=== PATIENT | female | born 1975 | race Caucasian/White ===

== ENCOUNTER → 2016-07-05 | Outpatient (CLI) | payer OTHER ==
[~2016-07-05] MED LIST: /ONDA4TA OR; ACAR25TA2 PO; AMIT24CA5 PO; AMIT25TA2 OR; ARTISOL10 OU; BENA25CA4 PO; CHRO1000 PO; CINN500C9 PO; CIPR500T89 PO; CORDRAN; CYCL10TA3 PO; DIFL150T PO; EPIN0.052 OU; FISH1000 PO; FOLI1TAB OR; FURO40TA2 OR; GLYB5TAB5 PO; HYDR25TAB PO; HYPROMELLOSE OU; JANUMET PO; K-TA10TA2 PO; LACT10SO8 PO; LANTUS SOLOSTAR SC; LYRI200C PO; MS C15TA2 PO; NADO20TA2 PO; NEUR600T OR; NEXI20CA OR; NYST100024 TOP; ONDA4TAB6 PO; OXCA15HATB OR; OXYC-208 PO; OXYC10TA12 OR; POLYBTL PO; PRANDIN PO; PRENTAB8 PO; SPIR100T PO; TOPI25CA PO; VITA50TA OR; VITA50TA12 OR; XIFAXAN PO; ZINC50TA PO; [UNRECOGNIZED DRUG - CODE] OR; [UNRECOGNIZED DRUG - MIXTURE]; [UNRECOGNIZED DRUG - OTHER] PO; [UNRECOGNIZED DRUG - OTHER] TF
[2016-07-05 15:53] LABS: INR 1.1
[2016-07-05 15:54] LABS: ALBUMIN 4.5 GM/DL (3.2-5.2); ALBUMIN/GLOBULIN RATIO 1.07 (1.00-1.93); ALKALINE PHOSPHATASE 99 U/L (45-117); ALT/SGPT 25 U/L (12-78); ANION GAP 10 MEQ/L (8-16); AST/SGOT 20 U/L (15-37); BILIRUBIN,TOTAL 1.2 MG/DL (0.2-1.0); BLOOD UREA NITROGEN 19 MG/DL (7-18); CALCIUM LEVEL 9.6 MG/DL (8.5-10.1); CARBON DIOXIDE LEVEL 33 MEQ/L (21-32); CHLORIDE LEVEL 94 MEQ/L (98-107); CREATININE FOR GFR 1.02 MG/DL (0.55-1.02); GLOMERULAR FILTRATION RATE > 60.0 (>60); GLUCOSE, FASTING 153 MG/DL (70-105); POTASSIUM SERUM 3.2 MEQ/L (3.5-5.1); SODIUM LEVEL 137 MEQ/L (136-145); TOTAL PROTEIN 8.7 GM/DL (6.4-8.2)
[2016-07-05 16:01] LABS: MEAN CORPUSCULAR HEMOGLOBIN 30.3 pg (27.0-33.0); MEAN CORPUSCULAR VOLUME 88.9 fl (80.0-96.0); PLATELET COUNT, AUTOMATED 141 k/mm3 (150-450); RED CELL DISTRIBUTION WIDTH 14.8 % (11.5-14.5); WHITE BLOOD COUNT 18.7 K/mm3 (4.0-10.0)
[2016-07-05 16:15] LABS: EOSINOPHILS 1 % (0-5)
[2016-07-05 16:16] LABS: PLATELET CLUMPS SMALL AMT
--- NOTE | 2016-07-06 06:35 | REP ---
Clinical: Spondylosis. Technique: AP, lateral, flexion/extension, bilateral oblique, and open-mouth views. Findings: Straightening of normal lordosis is appreciated along with mild endplate irregularity and disc space narrowing at the C4-5 and C5-6 levels is suggested. No acute fracture / compression injury or subluxation. Open mouth view demonstrates normal C1-C2 articulation and odontoid process. Oblique views demonstrate patent neural foramen. Impression: Straightening of normal lordosis and mild degenerative disc disease at the C4-5 and C5-6 levels suggested. Signed by Waldo Cruz MD 07/06/2016 06:28 A
--- NOTE | 2016-07-06 06:43 | REP ---
Clinical: Spondylosis . Technique: AP, lateral, flexion/extension, bilateral oblique, and coned-down views. Findings: Alignment and lordosis is maintained. The vertebral bodies including transverse process and spinous processes are intact and normal. There is no evidence for acute fracture / compression injury or subluxation. No evidence for spondylolysis or spondylolisthesis. No significant degenerative change is noted. Impression: Normal lumbosacral spine radiograph series. Signed by Waldo Cruz MD 07/06/2016 06:34 A
== END ==
LOC: M LAB 14:31
PROVIDERS: ATTEND Neurological Surgery
DX: Z01.818 Encounter for other preprocedural examination (principal); M47.892 Other spondylosis, cervical region; M47.896 Other spondylosis, lumbar region

== ENCOUNTER → 2016-07-13 | Outpatient (CLI) | payer OTHER ==
--- NOTE | 2016-07-13 18:52 | ECGEPIP ---
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
--- NOTE | 2016-07-14 01:17 | REP ---
Clinical: Preoperative assessment with history of hemoptysis and cough . Comparison: 07/15/2015 . Technique: PA and lateral. Findings: The mediastinum and cardiac silhouette are normal. Airway is patent and midline. The lung pritchett are clear and without acute consolidation, effusion, or pneumothorax. The skeletal structures are intact and normal. Impression: 1. No acute cardiopulmonary process. Signed by Waldo Cruz MD 07/14/2016 01:09 A
== END ==
LOC: M EKG 12:31
PROVIDERS: ATTEND Neurological Surgery
DX: Z01.818 Encounter for other preprocedural examination (principal)

== ENCOUNTER → 2016-07-27 | Day surgery (SDC) | payer OTHER ==
[~2016-07-27] VITALS: Ht 157.5 cm; Wt 72.6 kg
[~2016-07-27] MED LIST changes: +AMIT25TA PO; +CEFUROXIME SODIUM 1.5 GM in D5W MINI-BAG PLUS 50 ML IV ONE; +CYCL10TA PO; +GLYCOPYRROLATE INJ 0.2 MG/ML 2 ML VIAL As Ordered ONE; +HYDR12.55 PO; +INSUDET SC; +JARD1TAB PO; +KETOROLAC 60 MG/2 ML VIAL (J1885) As Ordered ONE; +LASI40TA PO; +LIDOCAINE 1% SDV INJ 30 ML VIAL As Ordered ONE; +LIDOCAINE 2% INJ 100 MG/5 ML SDV (FOR ANES.) As Ordered ONE; +LR 1,000 ML IV SCH; +METF1000 PO; +METF500T PO; +MIDAZOLAM INJ 2 MG/2 ML VIAL (J2250) As Ordered ONE; +NADO20TA PO; +NADOLOL 20MG TABLET PO ONE; +NEOSTIGMINE 1MG/ML 5 ML SYRINGE (J2710) As Ordered ONE; +NEXI20CA PO; +NORCO, ANEXSIA 5/325MG TABLET (HYDROcodone/ACETAMINOPHEN) PO PRN; +ONDANSETRON 4MG/2ML VIAL (J2405) As Ordered ONE; +ONDANSETRON 4MG/2ML VIAL (J2405) IV PRN; +PRAV10TA PO; +PRENTAB72 PO; +PROPOFOL 200 MG/20 ML VIAL As Ordered ONE; +ROCURONIUM BROMIDE 50 MG/5 ML VIAL As Ordered ONE; +TRUL0.5I SC; +VITA500T3 PO; +dexameTHASONE 4 MG/ML 1ML VIAL (J1100) As Ordered ONE; +ePHEDrine SULFATE 25 MG/5 ML(5MG/ML) SYRINGE As Ordered ONE; +fentaNYL 100 MCG/2 ML INJECTION (J3010) As Ordered ONE; +fentaNYL 100 MCG/2 ML INJECTION (J3010) IV PRN; +methylPREDNISolone SUSP 40 MG/ML (DEPO-medrol) VIAL (J1030) As Ordered ONE; +methylPREDNISolone SUSP 40 MG/ML (DEPO-medrol) VIAL (J1030) XX ONE
[2016-07-27 06:54] LABS: CONTROL LINE UCG INT CTR LINE PRESENT
[2016-07-27 07:30] VITALS: BP 130/80
[2016-07-27 11:31] VITALS: BP 102/55
--- NOTE | 2016-07-27 14:05 | RO ---
DATE OF PROCEDURE: 07/27/2016 PREOPERATIVE DIAGNOSES: Left carpal tunnel syndrome, comorbidities including diabetes. POSTOPERATIVE DIAGNOSES: Left carpal tunnel syndrome, comorbidities including diabetes. PROCEDURE: Release of left carpal tunnel and lysis of perineural scarring ( of median nerve). SURGEON: Ana Ball MD CIVIL PREPAREDNESS COORDINATOR: ANESTHESIA: General with tourniquet. FINDINGS: Please see my office notes for detailed preoperative evaluation and discussions. The patient was seen in the preoperative area with her nurses. The patient has a clinical and electrodiagnostic evidence of left carpal tunnel syndrome. The patient, however, understands that not all of her symptoms could be readily explained on her clinical and electrodiagnostic findings. She understands that no guarantees of any kind could be given and the risk of surgery. She understands all options and sequelae and complications of the proposed surgery. She understands the risk of surgery includes but not limited to , infection, bleeding, persistence or worsening of symptoms, and/or any deficits, failure of surgery, need for multiple surgeries, loss of any or all vital bodily functions, and/or any catastrophic sequelae. The patient claimed again she is not ready to live with her symptom and is willing to take any chance for any possible benefit. After all matters pertaining to surgery, anesthesia, and followup care had been discussed with her, she wished to proceed with surgery. She had discussions with the anesthesia service and decided to have the procedure done under general anesthesia. DESCRIPTION OF PROCEDURE: After informed consent, she was taken to the operating room. Once in the operating room, general anesthesia was given by the anesthesia service. The area of surgery was prepped and draped in the usual sterile fashion. At this time, the left upper extremity was exsanguinated using Esmarch dressing, and a tourniquet was applied at 250 mmHg. A skin incision was given along one of the palmar creases distal to the wrist crease. Alveolar layer was reached and incised. Cut edges of the blood vessels were coagulated with bipolar cautery. The tendons of the palmaris longus were . Thenar and hypothenar muscles were stripped off the flexor retinaculum, which was then incised in its entirety. There was nodular hypertrophy of the flexor retinaculum and adhesions on the median nerve were identified, and they were lysed, and superficial medial adhesions were lysed. Complete decompression appears to have taken place, the carpal tunnel and distal forearm. At this time, the wound was closed in two layers. The patient tolerated the procedure well and was sent to the recovery room in stable condition. I could not locate any family members. She claimed her would be coming in later today. The patient, however, had written and verbal followup instructions. BONIFACIO
--- NOTE | 2016-07-28 15:34 | RO ---
DATE OF PROCEDURE: 07/27/2016 PREOPERATIVE DIAGNOSIS: Left carpel tunnel syndrome. POSTOPERATIVE DIAGNOSIS: Left carpel tunnel syndrome. PROCEDURE: Release of left carpal tunnel, lysis of scar tissue of the median nerve of the carpal tunnel and distal forearm. SURGEON: Ana Blal MD SOLAR INSTALLATION FOREMAN: ANESTHESIA: General. FINDINGS: Please see my office note for detailed preoperative evaluation and discussion. Patient was aware of all options, risks, scope, expected outcome, sequelae of her carpal tunnel syndrome. The patient understood not all her symptoms could readily explain her clinical and electrodiagnostic findings, thus not all may be addressed. She understood that no guarantees of any kind could be given and that the risk of surgery included, but was not limited to, , loss of vital bodily functions, persistence or worsening of symptoms and/or deficits, failure of surgery, development of reflex sympathetic dystrophy, need for multiple surgeries, and/or any catastrophic sequelae. Patient once again claimed that she is willing to take any or all risk for any possible benefit, as she cannot cope with these symptoms anymore. I advised her to continue followup with her primary care physician regarding management of her diabetes and other comorbidities. After all matters pertaining to the surgery, anesthesia, and followup care had been discussed with her again and all her questions were answered, patient was then taken to the operating room. DESCRIPTION OF PROCEDURE: Once in the operating room, general anesthesia was given. Apparently, patient and the anesthesia service decided to switch from local monitored anesthesia care (MAC) to general anesthesia. Once the anesthesia was given, the area of surgery was prepped and draped in the usual sterile fashion. The left upper extremity was exsanguinated after adequate prep and drape, and a tourniquet was placed on her arm at 250 mmHg. A skin incision was given along one of the palmar creases distal to the wrist crease. The alveolar layer was reached and incised. Cut edge of the blood vessels were coagulated with bipolar cautery. Tendons of palmaris longus were , and the flexor retinaculum was then incised in its entirety. There was nodular hypertrophy of the flexor retinaculum, which was indenting the median nerve just distal to the wrist crease. There were considerable superficial adhesions of the median nerve, which were lysed, and complete decompression appeared to have taken place in the carpal tunnel and distal forearm. The wound was closed in two layers. Patient tolerated the procedure well and was transferred to recovery room in stable condition. There was no family member, though she states her would come and pick her up later today.
== END | disposition home or self-care (01) ==
LOC: M SDC 06:08
PROVIDERS: ATTEND Neurological Surgery
DX: G56.02 Carpal tunnel syndrome, left upper limb (principal); I10 Essential (primary) hypertension; N17.9 Acute kidney failure, unspecified; E87.5 Hyperkalemia; E87.1 Hypo-osmolality and hyponatremia; E83.30 Disorder of phosphorus metabolism, unspecified; K81.0 Acute cholecystitis; M47.892 Other spondylosis, cervical region; M54.81 Occipital neuralgia; M46.1 Sacroiliitis, not elsewhere classified; M47.896 Other spondylosis, lumbar region; E66.9 Obesity, unspecified; G60.3 Idiopathic progressive neuropathy; E78.00 Pure hypercholesterolemia, unspecified; E10.40 Type 1 diabetes mellitus with diabetic neuropathy, unspecified; E10.29 Type 1 diabetes mellitus with other diabetic kidney complication; K76.0 Fatty (change of) liver, not elsewhere classified; G89.29 Other chronic pain; G43.909 Migraine, unspecified, not intractable, without status migrainosus; Z72.0 Tobacco use; Z79.899 Other long term (current) drug therapy; Z79.4 Long term (current) use of insulin
CPT/HCPCS: 64721; 84703; J0697; J1030; J1100; J1885; J2250; J2405; J3010

== ENCOUNTER 2016-09-12 17:05 | Emergency (ER) | payer OTHER ==
[~2016-09-12] VITALS: Ht 157.5 cm; Wt 73.5 kg
[~2016-09-12 17:05] MED LIST changes: -CEFUROXIME SODIUM 1.5 GM in D5W MINI-BAG PLUS 50 ML IV ONE; -GLYCOPYRROLATE INJ 0.2 MG/ML 2 ML VIAL As Ordered ONE; -KETOROLAC 60 MG/2 ML VIAL (J1885) As Ordered ONE; -LIDOCAINE 1% SDV INJ 30 ML VIAL As Ordered ONE; -LIDOCAINE 2% INJ 100 MG/5 ML SDV (FOR ANES.) As Ordered ONE; -LR 1,000 ML IV SCH; -MIDAZOLAM INJ 2 MG/2 ML VIAL (J2250) As Ordered ONE; -NADOLOL 20MG TABLET PO ONE; -NEOSTIGMINE 1MG/ML 5 ML SYRINGE (J2710) As Ordered ONE; -NORCO, ANEXSIA 5/325MG TABLET (HYDROcodone/ACETAMINOPHEN) PO PRN; -ONDANSETRON 4MG/2ML VIAL (J2405) As Ordered ONE; -ONDANSETRON 4MG/2ML VIAL (J2405) IV PRN; -PROPOFOL 200 MG/20 ML VIAL As Ordered ONE; -ROCURONIUM BROMIDE 50 MG/5 ML VIAL As Ordered ONE; -dexameTHASONE 4 MG/ML 1ML VIAL (J1100) As Ordered ONE; -ePHEDrine SULFATE 25 MG/5 ML(5MG/ML) SYRINGE As Ordered ONE; -fentaNYL 100 MCG/2 ML INJECTION (J3010) As Ordered ONE; -fentaNYL 100 MCG/2 ML INJECTION (J3010) IV PRN; -methylPREDNISolone SUSP 40 MG/ML (DEPO-medrol) VIAL (J1030) As Ordered ONE; -methylPREDNISolone SUSP 40 MG/ML (DEPO-medrol) VIAL (J1030) XX ONE
[2016-09-12] MEDS ORDERED: MORPHINE 4 MG/ML 1ML SYRINGE IM ONE (19:45)
[2016-09-12 20:37] VITALS: BP 106/70
[2016-09-12] MEDS ORDERED: ULTR50TA PO (21:06)
--- NOTE | 2016-09-13 08:09 | REP ---
Clinical: Trauma. Technique: AP, lateral, bilateral oblique views of the right ankle. Findings: Soft tissue swelling noted. No acute fracture or dislocation. Joint spaces and ankle mortise are intact. No subcutaneous emphysema or radiodense foreign body. Impression: Soft-tissue swelling. No acute fracture or dislocation Signed by Waldo Cruz MD 09/13/2016 08:00 A
--- NOTE | 2016-09-13 08:11 | REP ---
Clinical: Trauma. Technique: AP, lateral, bilateral oblique views right foot . Findings: The osseous structures and joint spaces are intact and normal. There is no evidence for acute fracture or dislocation. Surrounding soft tissues are unremarkable. No subcutaneous emphysema or radiodense foreign body. Impression: No acute fracture or dislocation. Signed by Waldo Cruz MD 09/13/2016 08:02 A
== END 2016-09-12 21:23 | disposition home or self-care (01) ==
LOC: M ED 18:38
DX: S90.31XA Contusion of right foot, initial encounter (principal); S90.01XA Contusion of right ankle, initial encounter; W23.1XXA Caught, crushed, jammed, or pinched between stationary objects, initial encounter; Y92.410 Unspecified street and highway as the place of occurrence of the external cause; Y93.89 Activity, other specified; Y99.9 Unspecified external cause status

== ENCOUNTER 2016-12-05 19:29 | Emergency (ER) | payer OTHER ==
[~2016-12-05] VITALS: Ht 157.5 cm; Wt 75.6 kg
[~2016-12-05 19:29] MED LIST changes: -AMIT24CA5 PO; +AMIT24CA7 PO; -EPIN0.052 OU; +EPIN1DRO OU; -METF1000 PO; +METF10004 PO; -METF500T PO; +METF500T13 PO; -MS C15TA2 PO; +MS C15TA8 PO; -NYST100024 TOP; +NYST1POW9 TOP; -PRAV10TA PO; +PRAV10TA4 PO; +ULTR50TA8 PO
[2016-12-05] MEDS ORDERED: NOVOINJ3 SC (19:42)
[2016-12-05] MEDS ORDERED: NS 1,000 ML IV SCH (20:20)
[2016-12-05] MEDS ORDERED: NS 1,000 ML IV ONE (20:30)
[2016-12-05 21:52] LABS: VENOUS BASE EXCESS 6.3 (-2.0-2.0); VENOUS O2 SATURATION 93.9 % (60.0-80.0); VENOUS PARTIAL PRESSURE CO2 45.6 mmHg (38.0-50.0); VENOUS PARTIAL PRESSURE O2 66.8 mmHg (30.0-50.0); VENOUS STANDARD HCO3 30.1 MEQ/L; VENOUS TOTAL CO2 32.6 MEQ/L (24.0-28.0)
[2016-12-05 22:16] LABS: CONTROL LINE HCG INT CTR LINE PRESENT
[2016-12-05 22:22] LABS: BASO % 0.7 % (0.0-1.0); EOS # 0.1 K/mm3 (0.0-0.50); EOS % 1.7 % (0.0-3.0); LARGE UNSTAINED CELL # 0.1 K/mm3 (0.0-0.4); LYMPH # 1.8 K/mm3 (1.5-4.5); MEAN CORPUSCULAR HEMOGLOBIN 30.1 pg (27.0-33.0); MEAN CORPUSCULAR HGB CONC 34.1 g/dl (32.0-36.5); MEAN CORPUSCULAR VOLUME 88.1 fl (80.0-96.0); MONO # 0.6 K/mm3 (0.0-0.8); MONO % 8.2 % (0.0-5.0); NEUTROPHILS # 4.8 K/mm3 (1.8-7.7); NEUTROPHILS % 65.3 % (36.0-66.0); RED CELL DISTRIBUTION WIDTH 14.4 % (11.5-14.5); WHITE BLOOD COUNT 7.4 K/mm3 (4.0-10.0)
[2016-12-05 22:24] LABS: ALBUMIN 3.3 GM/DL (3.2-5.2); ALT/SGPT 24 U/L (12-78); ANION GAP 7 MEQ/L (8-16); AST/SGOT 17 U/L (15-37); BILIRUBIN,DIRECT 0.3 MG/DL (0.0-0.2); BILIRUBIN,TOTAL 0.8 MG/DL (0.2-1.0); BLOOD UREA NITROGEN 6 MG/DL (7-18); CALCIUM LEVEL 8.5 MG/DL (8.5-10.1); CARBON DIOXIDE LEVEL 32 MEQ/L (21-32); CHLORIDE LEVEL 99 MEQ/L (98-107); CREATININE FOR GFR 0.77 MG/DL (0.55-1.02); GLOMERULAR FILTRATION RATE > 60.0 (>58); GLUCOSE, FASTING 287 MG/DL (70-105); MAGNESIUM LEVEL 2.8 MG/DL (1.8-2.4); PHOSPHORUS LEVEL 0.9 MG/DL (2.5-4.9); SODIUM LEVEL 138 MEQ/L (136-145); TOTAL PROTEIN 6.6 GM/DL (6.4-8.2)
[2016-12-05 22:25] LABS: ADD MORPHOLOGY? YES; PLATELET COUNT, AUTOMATED 71 k/mm3 (150-450)
[2016-12-05 22:26] LABS: ALKALINE PHOSPHATASE 132 U/L (45-117)
[2016-12-05 22:30] LABS: GIANT PLATELETS 1+
[2016-12-05 22:33] LABS: OSMOLALITY SERUM 293 MOSM/KG (275-295)
[2016-12-05 22:34] LABS: POTASSIUM SERUM 2.6 MEQ/L (3.5-5.1)
[2016-12-05] MEDS ORDERED: POTASSIUM CHLORIDE 10 MEQ SR TABLET PO ONE (23:00)
[2016-12-05] MEDS ORDERED: PERCOCET 5MG/325MG TAB PO ONE (23:15)
[2016-12-05 23:25] LABS: METHADONE URINE NEGATIVE (NEGATIVE)
[2016-12-05 23:59] VITALS: BP 100/58
--- NOTE | 2016-12-06 02:01 | REP ---
Clinical: Diabetic ketoacidosis . Comparison: 07/13/2016 . Findings: The mediastinum and cardiac silhouette are stable and within normal limits for portable technique. The lung pritchett are clear without acute consolidation, effusion, or pneumothorax. Skeletal structures are intact. Impression: Normal portable chest x-ray Signed by Waldo Cruz MD 12/06/2016 01:53 A
--- NOTE | 2016-12-06 09:27 | ECGEPIP ---
Stationary ECG Study 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
== END 2016-12-06 00:34 | disposition home or self-care (01) ==
LOC: M ED 20:36
DX: E11.65 Type 2 diabetes mellitus with hyperglycemia (principal); E87.6 Hypokalemia; Z79.899 Other long term (current) drug therapy; F17.210 Nicotine dependence, cigarettes, uncomplicated
CPT/HCPCS: 71010; 80048; 80076; 80306; 81001; 82010; 82550; 82553; 82803; 83036; 83690; 83735; 83930; 84100; 84703; 85025; 87040; 87086; 93005; 93041; 96360; 99284; G0480

== ENCOUNTER 2017-07-09 14:59 | Emergency (ER) | payer OTHER, SELFPAY ==
[2017-07-09] MEDS: GI COCKTAIL 50ML BTL(HYOSCYAMINE/MAALOX/LIDOCAINE VISCOUS)(1:3:1) PO ×2 (16:30)
== END 2017-07-09 17:00 | disposition home or self-care (01) ==
LOC: M ED 14:59
DX: R09.89 Other specified symptoms and signs involving the circulatory and respiratory systems (principal); I10 Essential (primary) hypertension; K21.9 Gastro-esophageal reflux disease without esophagitis; E78.00 Pure hypercholesterolemia, unspecified; G47.30 Sleep apnea, unspecified; F17.200 Nicotine dependence, unspecified, uncomplicated
CPT/HCPCS: 99283

== ENCOUNTER → 2017-08-28 | Outpatient (REF) | payer BC ==
[2017-08-28 15:54] LABS: AMMONIA 36 uMOL/L (<32)
[2017-08-28 15:55] LABS: BASO # 0.1 10^3/uL (0.0-0.2); BASO % 0.6 % (0.0-1.0); EOS # 0.2 10^3/uL (0.0-0.50); HEMATOCRIT 46.5 % (36.0-47.0); IMMATURE GRANULOCYTE % 0.5 % (0-3.0); LYMPH # 2.2 10^3/uL (1.5-4.5); LYMPH % 20.4 % (24.0-44.0); MEAN CORPUSCULAR HEMOGLOBIN 29.8 pg (27.0-33.0); MEAN CORPUSCULAR HGB CONC 34.4 g/dl (32.0-36.5); MEAN CORPUSCULAR VOLUME 86.6 fl (80.0-96.0); MONO % 9.5 % (0.0-5.0); NEUTROPHILS # 7.4 10^3/uL (1.8-7.7); RED BLOOD COUNT 5.37 10^6/uL (4.00-5.40); RED CELL DISTRIBUTION WIDTH 13.6 % (11.5-14.5)
[2017-08-28 15:57] LABS: ESTIMATED AVERAGE GLUCOSE 154 MG/DL (60-110)
[2017-08-28 16:04] LABS: ALBUMIN 4.1 GM/DL (3.2-5.2); ALBUMIN/GLOBULIN RATIO 1.17 (1.00-1.93); ALKALINE PHOSPHATASE 84 U/L (45-117); ALT/SGPT 19 U/L (12-78); ANION GAP 7 MEQ/L (8-16); AST/SGOT 14 U/L (7-37); BILIRUBIN,TOTAL 0.7 MG/DL (0.2-1.0); BLOOD UREA NITROGEN 17 MG/DL (7-18); CALCIUM LEVEL 8.8 MG/DL (8.5-10.1); CARBON DIOXIDE LEVEL 34 MEQ/L (21-32); CHLORIDE LEVEL 97 MEQ/L (98-107); CHOLESTEROL LEVEL 137 MG/DL (<200); CHOLESTEROL RISK RATIO 5.269 (<5); CREATININE FOR GFR 0.71 MG/DL (0.55-1.30); FREE T4 1.23 NG/DL (0.76-1.46); GLOMERULAR FILTRATION RATE > 60.0 (>58); GLUCOSE, FASTING 124 MG/DL (70-100); HDL CHOLESTEROL 26 MG/DL (>40); LDL CHOLESTEROL 82.2 MG/DL (<100); MAGNESIUM LEVEL 2.6 MG/DL (1.8-2.4); NON-HDL-C 111 MG/DL; POTASSIUM SERUM 3.1 MEQ/L (3.5-5.1); SODIUM LEVEL 138 MEQ/L (136-145); TOTAL 25(OH) VITAMIN D 30.4 NG/ML (30.0-100.0); TOTAL PROTEIN 7.6 GM/DL (6.4-8.2); TRIGLYCERIDES LEVEL 144 MG/DL (<150); VITAMIN B12 LEVEL 775 PG/ML (247-911)
[2017-08-28 16:05] LABS: FOLATE 23.3 NG/ML (>5.4)
[2017-08-28 16:15] LABS: INR 1.16
[2017-08-28 16:16] LABS: PARTIAL THROMBOPLASTIN TIME 34.1 SECONDS (26.8-37.9)
[2017-08-28 18:27] LABS: PLATELET COUNT, AUTOMATED 88 10^3/uL (150-450)
[2017-08-28 18:28] LABS: IMMATURE PLATELET FRACTION % 25.2 % (0.0-9.6)
[2017-08-28 19:00] LABS: MALB URINE SIEMENS 8.3 MG/L; MAU/CREAT RATIO 8.1 MCG/MG (0.0-30.0)
[2017-08-28 22:05] LABS: APPEARANCE, URINE MANUAL CLEAR (CLEAR); BILIRUBIN, URINE MANUAL NEGATIVE (NEGATIVE); BLOOD URINE MANUAL NEGATIVE (NEGATIVE); COLOR, URINE MANUAL YELLOW (YELLOW); GLUCOSE, URINE (UA) MANUAL 3+(500 MG/DL) mg/dL (NEGATIVE); KETONE, URINE MANUAL NEGATIVE (NEGATIVE); LEUKOCYTE ESTERASE, URINE MAN NEGATIVE (NEGATIVE); MICROSCOPIC INDICATED? MAN NO (NO); NITRITE, URINE MANUAL NEGATIVE (NEGATIVE); PROTEIN, URINE MANUAL NEGATIVE (NEGATIVE); SPECIFIC GRAVITY,URINE MANUAL 1.026 (1.002-1.035); UROBILINOGEN, URINE MANUAL NORMAL (NORMAL)
== END ==
LOC: M SFHCPLAZ 13:17
DX: Z87.19 Personal history of other diseases of the digestive system (principal); E11.9 Type 2 diabetes mellitus without complications; R53.83 Other fatigue; E78.00 Pure hypercholesterolemia, unspecified; E55.9 Vitamin D deficiency, unspecified; K21.9 Gastro-esophageal reflux disease without esophagitis
CPT/HCPCS: 82140

== ENCOUNTER → 2017-11-28 | Outpatient (REF) | payer BC ==
[2017-11-28 15:30] LABS: BASO # 0.1 10^3/uL (0.0-0.2); BASO % 0.5 % (0.0-1.0); EOS # 0.1 10^3/uL (0.0-0.50); EOS % 1.3 % (0.0-3.0); HEMATOCRIT 48.3 % (36.0-47.0); HEMOGLOBIN 16.3 g/dl (12.0-15.5); IMMATURE GRANULOCYTE % 0.9 % (0-3.0); LYMPH # 1.7 10^3/uL (1.5-4.5); LYMPH % 16.9 % (24.0-44.0); MEAN CORPUSCULAR HEMOGLOBIN 30.2 pg (27.0-33.0); MEAN CORPUSCULAR HGB CONC 33.7 g/dl (32.0-36.5); MEAN CORPUSCULAR VOLUME 89.6 fl (80.0-96.0); MONO # 0.8 10^3/uL (0.0-0.8); MONO % 8.2 % (0.0-5.0); NEUTROPHILS # 7.2 10^3/uL (1.8-7.7); NEUTROPHILS % 72.2 % (36.0-66.0); RED BLOOD COUNT 5.39 10^6/uL (4.00-5.40); RED CELL DISTRIBUTION WIDTH 13.9 % (11.5-14.5)
[2017-11-28 15:41] LABS: INR 1.08; PROTHROMBIN TIME 14.2 SECONDS (12.4-14.5)
[2017-11-28 15:42] LABS: PARTIAL THROMBOPLASTIN TIME 30.9 SECONDS (26.8-37.9)
[2017-11-28 15:48] LABS: AMMONIA 68 uMOL/L (<32)
[2017-11-28 15:49] LABS: ALBUMIN 3.7 GM/DL (3.2-5.2); ALBUMIN/GLOBULIN RATIO 1.09 (1.00-1.93); ALKALINE PHOSPHATASE 107 U/L (45-117); ALT/SGPT 30 U/L (12-78); ANION GAP 9 MEQ/L (8-16); AST/SGOT 23 U/L (7-37); BILIRUBIN,DIRECT 0.3 MG/DL (0.0-0.2); BILIRUBIN,TOTAL 0.9 MG/DL (0.2-1.0); BLOOD UREA NITROGEN 11 MG/DL (7-18); CALCIUM LEVEL 8.4 MG/DL (8.5-10.1); CARBON DIOXIDE LEVEL 28 MEQ/L (21-32); CHLORIDE LEVEL 102 MEQ/L (98-107); CHOLESTEROL LEVEL 154 MG/DL (<200); CHOLESTEROL RISK RATIO 4.967 (<5); CREATININE FOR GFR 0.82 MG/DL (0.55-1.30); GLOMERULAR FILTRATION RATE > 60.0 (>58); GLUCOSE, FASTING 166 MG/DL (70-100); HDL CHOLESTEROL 31 MG/DL (>40); LDL CHOLESTEROL 98.4 MG/DL (<100); MAGNESIUM LEVEL 2.5 MG/DL (1.8-2.4); NON-HDL-C 123 MG/DL; POTASSIUM SERUM 3.7 MEQ/L (3.5-5.1); SODIUM LEVEL 139 MEQ/L (136-145); TOTAL PROTEIN 7.1 GM/DL (6.4-8.2); TRIGLYCERIDES LEVEL 123 MG/DL (<150)
[2017-11-28 15:57] LABS: ESTIMATED AVERAGE GLUCOSE 192 MG/DL (60-110); HEMOGLOBIN A1c 8.3 %
[2017-11-28 18:45] LABS: PLATELET COUNT, AUTOMATED 55 10^3/uL (150-450); POS COUNT POS FLAG
[2017-11-28 18:46] LABS: IMMATURE PLATELET FRACTION % 28.9 % (0.0-9.6)
== END ==
LOC: M SFHCPLAZ 12:14
DX: K74.60 Unspecified cirrhosis of liver (principal); Z86.79 Personal history of other diseases of the circulatory system; E11.9 Type 2 diabetes mellitus without complications; E78.00 Pure hypercholesterolemia, unspecified
CPT/HCPCS: 82140

== ENCOUNTER → 2018-09-18 | Outpatient (REF) | payer BC ==
[~2018-09-18] MED LIST changes: -/ONDA4TA OR; +HYDR-2541 PO; -HYDR25TAB PO; +JARD1TAB3 PO; -LASI40TA PO; +LASI40TA9 PO; +LINZ290C; +NOVOINJ3 SC; +ONDA-1 OR; -OXCA15HATB OR; +OXCA1TAB OR; +PROT20TA11; +SPIR100T3 PO
[2018-09-18 15:01] LABS: BASO # 0.1 10^3/uL (0.0-0.2); BASO % 0.8 % (0.0-1.0); EOS # 0.2 10^3/uL (0.0-0.50); EOS % 1.6 % (0.0-3.0); HEMATOCRIT 47.1 % (36.0-47.0); LYMPH # 2.1 10^3/uL (1.5-4.5); LYMPH % 18.4 % (24.0-44.0); MEAN CORPUSCULAR HEMOGLOBIN 30.3 pg (27.0-33.0); MEAN CORPUSCULAR VOLUME 89.2 fl (80.0-96.0); MONO # 0.8 10^3/uL (0.0-0.8); MONO % 7.3 % (0.0-5.0); NEUTROPHILS # 7.9 10^3/uL (1.8-7.7); NEUTROPHILS % 70.8 % (36.0-66.0); RED BLOOD COUNT 5.28 10^6/uL (4.00-5.40); WHITE BLOOD COUNT 11.1 10^3/uL (4.0-10.0)
[2018-09-18 15:02] LABS: PLATELET COUNT, AUTOMATED 85 10^3/uL (150-450)
[2018-09-18 15:12] LABS: INR 1.14; PROTHROMBIN TIME 14.8 SECONDS (12.1-14.4)
[2018-09-18 15:13] LABS: PARTIAL THROMBOPLASTIN TIME 30.7 SECONDS (25.4-37.6)
[2018-09-18 15:20] LABS: HEMOGLOBIN A1c 9.8 %
[2018-09-18 15:22] LABS: CREATININE, URINE 63.9 MG/DL; MAU/CREAT RATIO 9.3 MCG/MG (0.0-30.0)
[2018-09-18 15:34] LABS: ALBUMIN 3.8 GM/DL (3.2-5.2); ALT/SGPT 22 U/L (12-78); BILIRUBIN,TOTAL 0.9 MG/DL (0.2-1.0); BLOOD UREA NITROGEN 7 MG/DL (7-18); CALCIUM LEVEL 8.5 MG/DL (8.5-10.1); CARBON DIOXIDE LEVEL 27 MEQ/L (21-32); CHLORIDE LEVEL 98 MEQ/L (98-107); CHOLESTEROL LEVEL 176 MG/DL (<200); CHOLESTEROL RISK RATIO 5.866 (<5); CREATININE FOR GFR 0.93 MG/DL (0.55-1.30); FREE T4 1.19 NG/DL (0.76-1.46); GLOMERULAR FILTRATION RATE > 60.0 (>58); GLUCOSE, FASTING 340 MG/DL (70-100); HDL CHOLESTEROL 30 MG/DL (>40); LDL CHOLESTEROL 95 MG/DL (<100); NON-HDL-C 146 MG/DL; POTASSIUM SERUM 3.5 MEQ/L (3.5-5.1); SODIUM LEVEL 135 MEQ/L (136-145); THYROID STIMULATING HORMONE 0.797 uIU/ML (0.358-3.740); TRIGLYCERIDES LEVEL 253 MG/DL (<150)
== END ==
LOC: M SFHCPLAZ 13:24
PROVIDERS: ATTEND Nurse Practitioner Family
DX: K74.60 Unspecified cirrhosis of liver (principal); E11.9 Type 2 diabetes mellitus without complications; E78.00 Pure hypercholesterolemia, unspecified